=== PATIENT | male | born 1970 | race Caucasian/White ===

== ENCOUNTER 2021-06-11 10:04 | Emergency (ER) | payer MEDICAID ==
[~2021-06-11] VITALS: Ht 167.6 cm; Wt 68.0 kg
[2021-06-11] MEDS ORDERED: IBUPROFEN 600MG TABLET PO ONE (10:30)
[2021-06-11 10:45] VITALS: BP 103/74
[2021-06-11] MEDS ORDERED: HYDR-4001 MT (12:26)
[2021-06-11] MEDS ORDERED: IBUP-2030 MT (12:26)
== END 2021-06-11 12:50 | disposition home or self-care (01) ==
LOC: ER 10:18
DX: S22.31XA Fracture of one rib, right side, initial encounter for closed fracture (principal); S00.03XA Contusion of scalp, initial encounter; F99 Mental disorder, not otherwise specified; F10.129 Alcohol abuse with intoxication, unspecified; Y90.9 Presence of alcohol in blood, level not specified; Y00.XXXA Assault by blunt object, initial encounter; Y93.89 Activity, other specified; Y92.89 Other specified places as the place of occurrence of the external cause
CPT/HCPCS: 71250; 72100; 99285